=== PATIENT | female | born 1985 | race Caucasian/White ===

== ENCOUNTER 2017-11-11 10:25 | Emergency (ER) | payer BC, MEDICAID ==
[2017-11-11] MEDS ORDERED: predniSONE 20 MG TABLET PO ONE (11:03)
[2017-11-11] MEDS ORDERED: NAPROXEN SODIUM 550 MG TABLET PO ONE (11:03)
--- NOTE | 2017-11-11 11:05 | ERNOTE ---
ENT HPI Presenting Symptoms: other - sore throat with laryngitis Time Seen by Provider: 11/11/17 11:01 Source: patient Exam Limitations: no limitations - Immun/Allergies/Home Medications Immunizations: IMMUNIZATION HX Immunizations Up to Date Yes History of Influenza Vaccine No Hx Pneumococcal Vaccination No Allergies/Adverse Reactions: Allergies Allergy/AdvReac Type Severity Reaction Status Date / Time No Known Allergies Allergy Unverified 11/11/17 10:53 Home Medications: HOME MEDICATIONS Naproxen [Naprosyn] 500 mg PO BID #60 tablet 11/11/17 [Last Taken Unknown] - History of Present Illness Narrative: Patient complains of sore throat with laryngitis that developed over the past 2 days and she rates the pain as well as moderate severity Severity: Present: moderate ENT Location: Present: throat Prearrival Treatment: Present: no prearrival treatment Modifying Factors - Improves: Reports: nothing Modifying Factors - Worsens: Reports: nothing Associated Symptoms - ENT: Reports: fever Review of Systems - Review of Systems Constitutional: Present: See HPI EYE: Present: no symptoms reported ENT: Present: See HPI Respiratory: Present: no symptoms reported Cardiology: Present: no symptoms reported Gastrointestinal/Abdominal: Present: no symptoms reported Genitourinary: Present: no symptoms reported Musculoskeletal: Present: no symptoms reported Skin: Present: no symptoms reported Neurological: Present: no symptoms reported Endocrine: Present: no symptoms reported Hematologic/Lymphatic: Present: no symptoms reported Psych: Present: no symptoms reported - Patient's Past Medical History Patient History - Medical: No pertinent hx Patient History - Cardiac/Respiratory: No pertinent hx Patient History - Cancer: No Hx of Cancer Patient History - Surgical Procedures: T & A Patient History - Other: None LMP (females 10-50): now - Social History Living Situations: other Abuse History: No History of abuse Psych History: No pertinent hx Smoking Status: Never smoker Alcohol Use: rarely Drug Use: none - Immunizations Immunizations Up to Date: Yes Hx Pneumococcal Vaccination: No History of Influenza Vaccine: No Physical Exam - Physical Exam General Appearance: Present: wd/wn, alert, moderate distress Head Exam: Present: normal inspection, no evidence of injury Eye Exam: Normal inspection: bilateral, PERRL: bilateral Ears, Nose, Throat: Present: pharyngeal erythema Neck: Present: normal inspection, lymphadenopathy (R), lymphadenopathy (L) Respiratory: Present: no respiratory distress, normal breath sounds, no accessory muscle use, chest nontender, lungs clear Cardiovascular/Chest: Present: no murmur, normal peripheral pulses, tachycardia Gastrointestinal/Abdominal: Present: normal bowel sounds, nontender, nondistended, soft, no organomegaly Rectal Exam: Present: deferred Back Exam: Present: normal inspection, normal range of motion Extremity Exam: Present: normal inspection, non-tender, no edema, normal range of motion Neurological Exam: Present: alert, oriented, normal mood/affect Skin Exam: Present: normal color, warm/dry Lymphatic Exam: Present: no adenopathy ED Progress - Results and Orders Patient's Lab Results:: I have reviewed the patient's lab results. - Vital Signs Patient's Vital Signs:: I have reviewed the patient's vital signs. Vital Signs: Vital Signs 11/11/17 10:49 Temperature 37.5 C Pulse Rate 119 H Respiratory 17 Rate Blood Pressure 132/91 O2 Sat by Pulse 97 Oximetry - Progress/Reassessment Chief Complaint: Sore Throat Plan - Plan Plan: We will give patient Naprosyn for the sore throat and as we are roughly 72 hours into the flu, Tamiflu would not be reasonable at this juncture. Patient will be Off work for the next 3 days and she will likely be able to go back to work on November 15. 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 Departure Clinical Impression: Influenza A - Departure Disposition: Home self-care Condition: Good Instructions: Influenza, Adult, [id number] Prescriptions: Naproxen [Naprosyn] 500 mg PO BID #60 tablet
[2017-11-11] MEDS ORDERED: predniSONE 20 MG TABLET ONE (11:10)
[2017-11-11] MEDS ORDERED: NAPROXEN SODIUM 550 MG TABLET ONE (11:10)
[2017-11-11 11:35] VITALS: BP 129/87
== END 2017-11-11 11:44 | disposition home or self-care (01) ==
LOC: ER 10:25
DX: J09.X2 Influenza due to identified novel influenza A virus with other respiratory manifestations (principal)